=== PATIENT | female | born 1955 | race Caucasian/White ===

== ENCOUNTER 2016-08-06 11:47 | Emergency (ER) | payer OTHER ==
[~2016-08-06] VITALS: Ht 152.4 cm; Wt 69.1 kg
[2016-08-06] MEDS ORDERED: KEFLEX500 MG PO (15:30)
[2016-08-06] MEDS ORDERED: BACTRIM,SEPT1 TABLET PO (15:30)
[2016-08-06] MEDS ORDERED: PERCOCET 5/31 TABLET PO (15:30)
[2016-08-06 15:41] VITALS: BP 150/89
== END 2016-08-06 15:41 | disposition home or self-care (01) ==
LOC: EME 11:47
PROC: 0HQGXZZ Repair Left Hand Skin, External Approach (ICD-10-PCS; principal; 2016-08-06)
DX: S61.213A Laceration without foreign body of left middle finger without damage to nail, initial encounter (principal); W27.8XXA Contact with other nonpowered hand tool, initial encounter; Y93.H9 Activity, other involving exterior property and land maintenance, building and construction
CPT/HCPCS: 73140; 99281; 99284